=== PATIENT | male | born 1960 | race Caucasian/White ===

== ENCOUNTER 2019-06-14 09:17 | Outpatient (CLI) | payer BC ==
--- NOTE | 2019-06-14 10:01 | CT ---
CT of abdomen and pelvis: 06/14/2019 COMPARISON: None HISTORY: Left-sided flank pain, history of left-sided kidney stone TECHNIQUE: Axial CT imaging at 5 mm intervals from lung bases through pubic symphysis without contras t. Coronal reformatted imaging obtained. FINDINGS: Lack of contrast media limits assessment of the viscera, bowel, vascular structures, and fo r lymphadenopathy. Superior aspect of the liver dome is not fully imaged on this exam. Imaged lung bases appear grossly unremarkable. Imaged hepatic parenchyma unremarkable. Gallbladder, spleen, pancreas, adrenal glands and right kidne y appear unremarkable. No nephrolithiasis or evidence of obstructive uropathy is appreciated on the right. There is hydronephrosis and hydroureter on the left. There is a midpole intrarenal calculus on the le ft measuring approximately 3-4 mm. There is an obstructing stone within the left ureter at the axial level of the pelvic inlet, best seen on axial image 66, measuring approximately 4 mm. No additional obstructing stone noted within the left ureter. Limited assessment of the bowel without oral contrast media demonstrates no acute findings. There is atherosclerotic calcification of the infrarenal abdominal aorta. Review of the osseous structures demonstrates no worrisome findings. IMPRESSION: Obstructive uropathy on the left secondary to an obstructing stone 4 mm stone within the left ureter at the axial level of the pelvic inlet. Intrarenal stone disease on the left as well.
== END 2019-06-14 09:18 | disposition home or self-care (01) ==
LOC: SCSCT 09:17
PROVIDERS: ATTEND Urology
DX: N20.2 Calculus of kidney with calculus of ureter (principal); N13.9 Obstructive and reflux uropathy, unspecified
CPT/HCPCS: 74176

== ENCOUNTER 2019-06-15 09:05 | Outpatient (CLI) | payer BC ==
[2019-06-15 17:26] LABS: Mean Corpuscular HGB CONC 33.5 g/dL (32.0-36.0); Mean Corpuscular Hemoglobin 32.4 pg (27.0-31.0); Mean Corpuscular Volume 96.6 fL (78.0-98.0); Mean Platelet Volume 7.1 fL (7.4-10.4); Platelet Count 239 thou/uL (130-400); RBC Distribution Width 11.8 % (11.5-14.5); Red Blood Cell (RBC) Count 4.31 mill/uL (4.70-6.10)
[2019-06-15 17:56] LABS: Anion Gap 12 mmol/L (10-20); BUN (Urea Nitrogen) 21 mg/dL (8.4-25.7); Calc. Creatinine Clearance 0 mL/min (70-130); Calcium 9.5 mg/dL (7.8-10.44); Carbon Dioxide 27 mmol/L (22-29); Chloride 110 mmol/L (98-107); Estimated GFR-MDRD 54; Glucose 93 mg/dL (70-105); Potassium 4.4 mmol/L (3.5-5.1); Sodium 145 mmol/L (136-145)
== END 2019-06-15 09:06 | disposition home or self-care (01) ==
LOC: LABBT 09:05
PROVIDERS: ATTEND Urology
DX: Z01.818 Encounter for other preprocedural examination (principal); N20.0 Calculus of kidney
CPT/HCPCS: 80048; 85027; 93005; 93010

== ENCOUNTER 2019-06-19 16:31 | Outpatient (CLI) | payer BC ==
[2019-06-19 18:09] LABS: Bacteria/HPF None Seen HPF (None Seen); Bilirubin Negative (Negative); Blood, Urine Negative (Negative); Clarity Clear (Clear); Glucose, Urine (Dipstick) Normal (Negative); Leukocyte Negative Leu/uL (Negative); Mucous/LPF Rare LPF (<2+); Nitrite Negative (Negative); Protein, Urine (Dipstick) Negative (Neg-Trace); RBC/HPF 0-3 HPF (0-3); Squamous Epithelial None Seen HPF (0-3); Urobilinogen Normal mg/dL (Less than 2); WBC/HPF 0-3 HPF (0-3)
== END 2019-06-19 16:32 | disposition home or self-care (01) ==
LOC: LABBT 16:31
PROVIDERS: ATTEND Urology
DX: Z01.812 Encounter for preprocedural laboratory examination (principal); N20.0 Calculus of kidney
CPT/HCPCS: 81001; 87086

== ENCOUNTER 2019-06-20 09:08 | Day surgery (SDC) | payer BC ==
[2019-06-15 16:33] VITALS: BMI 24.3
[2019-06-20] MEDS ORDERED: Levofloxacin 500 mg/D5W 100 ml Premix Bag ONE (09:38)
[2019-06-20] MEDS ORDERED: Midazolam HCl 2 mg/2 ml Vial ONE (09:56)
[2019-06-20] MEDS ORDERED: Ondansetron PF 4 MG/2 ML Vial ONE (10:31)
[2019-06-20] MEDS ORDERED: Dexamethasone 20 MG/5 ML VIAL ONE (10:31)
[2019-06-20] MEDS ORDERED: EPHEDRINE 25 MG/5 ML SYRINGE ONE (10:31)
[2019-06-20] MEDS ORDERED: PROPOFOL 200 MG/20 ML VIAL ONE (10:31)
[2019-06-20] MEDS ORDERED: PHENYLEPHRINE-NS 100 MCG/ML 10 ML SYRINGE ONE (10:31)
[2019-06-20] MEDS ORDERED: Ketorolac Tromethamine 30 MG/ML VIAL ONE (10:31)
[2019-06-20] MEDS ORDERED: Lidocaine 1% PF 5 ML VIAL ONE (10:31)
[2019-06-20] MEDS ORDERED: HYDROmorphone 0.5 MG/0.5 ML SYRINGE ONE (10:50)
[2019-06-20] MEDS ORDERED: Iothalamate Meglumine 60% 50 ML VIAL FS ONE (11:10)
[2019-06-20] MEDS ORDERED: Oxybutynin 5 MG TAB ONE (12:33)
[2019-06-20] MEDS ORDERED: Phenazopyridine HCl 97.5 MG TABLET ONE (12:34)
--- NOTE | 2019-06-20 14:59 | OP ---
DATE OF PROCEDURE: 06/20/2019 PREOPERATIVE DIAGNOSES: Left ureteral and renal stones. POSTOPERATIVE DIAGNOSES: Left ureteral and renal stones. PROCEDURES PERFORMED: Left ureteroscopy with laser lithotripsy, basket extraction of stone, retrograde pyelogram, 6 x 26 double-J ureteral stent placement. ANESTHESIA: General. COMPLICATIONS: None. BLOOD LOSS: Minimal. SPECIMEN: Left stone fragments. DESCRIPTION OF PROCEDURE: After informed consent, the patient was taken to the operating room and transferred to the table under his own power. Anesthesia was established. A time-out was performed showing the correct patient, site, and procedure. Preoperative antibiotics were administered. He was prepped and draped in the lithotomy position. The semi-rigid ureteroscope was advanced through the urethra noting a normal course and caliber of the urethra into the bladder. The left ureteral orifice was cannulated with a wire, which was passed up to the level of the renal pelvis under fluoroscopic guidance. The scope was withdrawn and re-inserted alongside the wire into the distal ureter, where the stone was found to be impacted within 2 to 3 cm of the UVJ. A retrograde pyelogram was performed showing very minimal hydroureter and hydronephrosis. The 365-micron laser fiber was utilized to fragment the stone into a few small pieces, which were removed with the 1.9 cm Nitinol basket. The scope was then passed into the mid/proximal ureter noting no further stone fragments or abnormalities. The scope was then withdrawn. An Access sheath was placed over the wire into the mid ureter under fluoroscopic guidance. The flexible ureteroscope was passed through this into the renal pelvis, where the stone seen on CT scan was found still connected to a mid pole calyceal papilla. The first scope that we utilized broke during the procedure and would not allow flexion. This was removed, and a replacement scope was passed through the Access sheath into the kidney, at which point, I was able to use the same laser fiber to dust the stone in that calyx into clinically insignificant fragments. The entirety of the collecting system was then examined noting no further stone fragments. The renal pelvis was filled with contrast, and then the scope was withdrawn leaving the wire and Access sheath in place. The Access sheath was then carefully withdrawn. A 6 x 26 double-J ureteral stent was passed over the wire with a curl in the kidney and a curl in the bladder under fluoroscopic guidance. The bladder was then drained. The patient was awoken from anesthesia, transferred back to his hospital bed, and taken to PACU in stable condition, where he will discharge home upon recovery. Job ID: [id number]
== END 2019-06-20 14:10 | disposition home or self-care (01) ==
LOC: SDC 09:08
PROVIDERS: ATTEND Urology
PROC: 0T778DZ Dilation of Left Ureter with Intraluminal Device, Via Natural or Artificial Opening Endoscopic (ICD-10-PCS; principal; 2019-06-20)
PROC: 0TF78ZZ Fragmentation in Left Ureter, Via Natural or Artificial Opening Endoscopic (ICD-10-PCS; principal; 2019-06-20)
DX: N13.2 Hydronephrosis with renal and ureteral calculous obstruction (principal); Z79.82 Long term (current) use of aspirin; Z79.899 Other long term (current) drug therapy
CPT/HCPCS: 76000; 82365; 88300; J1100; J1170; J1885; J1956; J2001; J2250; J2405; J2704